=== PATIENT | female | born 1990 | race Hispanic/Latino ===

== ENCOUNTER 2021-03-05 10:59 | Emergency (ER) | payer OTHER, SELFPAY ==
[2021-03-05 11:30] VITALS: BP 130/81; PULSE 81; RESP 16; TEMP 36.6; O2SAT 97; BMI 43.2
--- NOTE | 2021-03-05 13:13 | ED_ITS ---
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 When she was turning the patient over in bed she felt the pain in her upper back. It got progressively more tight and more painful over the course of the next hour. She then went home after her shift and took some ibuprofen which slightly helped her symptoms. However, after she woke up she was still in significant discomfort. She denies any significant difficulty breathing, fever, rash, chest pain headache or any other acute concerns or complaints at this time. She denies any previous injuries similar to this. Related Data Allergies Allergy/AdvReac Type Severity Reaction Status Date / Time celecoxib [From Celebrex] Allergy Hives Verified 03/05/21 11:30 cetirizine [From Zyrtec] Allergy Hives Verified 03/05/21 11:30 Review of Systems <Edgar Bermudez PA-C - Last Filed: 03/12/21 12:08> Review of Systems Narrative: As per HPI Patient History <Edgar Bermudez PA-C - Last Filed: 03/12/21 12:08> Social History Smoking Status: Former smoker Smoking Status: Former smoker alcohol intake frequency: 0-2 drinks per day Substance Use Type: marijuana Exam <Edgar Bermudez PA-C - Last Filed: 03/12/21 12:08> Narrative Exam Narrative: Exam Narrative: Const General: cooperative, healthy appearing, comfortable, no acute distress, well developed and well groomed Nutritional Appearance: Elevated BMI Orientation: alert and oriented x3 HENMT Head: normal to inspection and atraumatic Ears: hearing grossly normal bilaterally Nose: external nose normal and nares normal Face and sinus: normal facial exam Neck Neck: normal visual inspection and supple Resp Effort & Inspection: normal respiratory effort, able to speak in complete sentences, no audible wheezes, not labored, no nasal flaring and no respiratory distress, clear to auscultation bilaterally Musculoskeletal No midline spinal tenderness noted. Mild bilateral paraspinal muscle tenderness in the upper thoracic region to light palpation. No overlying skin changes. Neuro General: alert, oriented x3, gait normal, tone normal and moves all extremities Cognition: normal cognition Speech: speech normal Gait: normal gait Psych Appearance: grossly normal and well kempt Mental Status: mental status grossly normal Speech and Movement: speech and movement normal Mood: congruent mood Affect: normal affect Initial Vital Signs Initial Vital Signs: Vital Signs Temperature 97.9 F 03/05/21 11:30 Pulse Rate 81 03/05/21 11:30 Respiratory Rate 16 03/05/21 11:30 Blood Pressure 130/81 03/05/21 11:30 Pulse Oximetry 97 03/05/21 11:30 <DO Isaias Schneider Last Filed: 03/21/21 07:24> Initial Vital Signs Initial Vital Signs: Vital Signs Temperature 97.9 F 03/05/21 11:30 Pulse Rate 81 03/05/21 11:30 Respiratory Rate 16 03/05/21 11:30 Blood Pressure 130/81 03/05/21 11:30 Pulse Oximetry 97 03/05/21 11:30 Course <Edgar Bermudez PA-C - Last Filed: 03/12/21 12:08> Orders Ordered: Discontinued Medications Acetaminophen (Acetaminophen 325 Mg Tablet) 650 mg PO Q4HR PRN PRN Reason: Fever/Mild Pain (1-3) Last Admin: 03/05/21 13:31 Dose: 650 mg Documented by: BTONER Vital Signs Vital signs: Vital Signs - 8 hr 03/05/21 11:30 Temperature 97.9 F Pulse Rate 81 Respiratory Rate 16 Blood Pressure 130/81 Pulse Oximetry 97 <DO Isaias Schneider Last Filed: 03/21/21 07:24> Orders Ordered: Discontinued Medications Acetaminophen (Acetaminophen 325 Mg Tablet) 650 mg PO Q4HR PRN PRN Reason: Fever/Mild Pain (1-3) Last Admin: 03/05/21 13:31 Dose: 650 mg Documented by: BTONER Vital Signs Vital signs: Vital Signs - 8 hr 03/05/21 11:30 Temperature 97.9 F Pulse Rate 81 Respiratory Rate 16 Blood Pressure 130/81 Pulse Oximetry 97 MDM - Back Pain/Injury <Edgar Bermudez PA-C - Last Filed: 03/12/21 12:08> MDM Narrative Medical decision making narrative: She has no midline spinal tenderness and has normal lung sounds bilaterally. I do not suspect any significant injury that would require advanced imaging at this time. Discharge Plan Departure Patient Disposition: Home Clinical Impression: Mid back pain Instructions: DI for Back Spasm Activity Restrictions/Additional Instructions: It was very nice to me meet you this afternoon. Please apply warm compresses to the affected area, to light exercise, stretching as discussed to help with symptoms. Also massage therapy may be beneficial. I expect symptoms to improve over the course of the next few days. Recommend activity as tolerated. Follow- up with your primary care provider issue or symptoms fail to improve as expected. Patient verbalizes understanding and agrees to plan and has no further concerns at this time. Thank you A [id number] system was used with the dictation of this note. Please disregard any spelling or grammatical errors. <Lamar Lopez, DO - Last Filed: 03/21/21 07:24> Cosign ED Attending Cosignature Attestation: I was immediately available in the department for consultation. Documentation has been reviewed.
[2021-03-05] MEDS: ACETAMINOPHEN 325 MG TABLET 650 MG PO (13:31)
--- NOTE | 2021-03-05 14:20 | ED_ITS ---
HPI - Back Pain/Injury General Chief Complaint: Back Pain/Injury Stated Complaint: Injured back at work Time Seen by Provider: 03/05/21 13:00 Source: patient Limitations: no limitations Related Data Allergies Allergy/AdvReac Type Severity Reaction Status Date / Time celecoxib [From Celebrex] Allergy Hives Verified 03/05/21 11:30 cetirizine [From Zyrtec] Allergy Hives Verified 03/05/21 11:30 Patient History Social History Smoking Status: Former smoker Smoking Status: Former smoker alcohol intake frequency: 0-2 drinks per day Substance Use Type: marijuana Exam Initial Vital Signs Initial Vital Signs: Vital Signs Temperature 97.9 F 03/05/21 11:30 Pulse Rate 81 03/05/21 11:30 Respiratory Rate 16 03/05/21 11:30 Blood Pressure 130/81 03/05/21 11:30 Pulse Oximetry 97 03/05/21 11:30 Course Orders Ordered: Discontinued Medications Acetaminophen (Acetaminophen 325 Mg Tablet) 650 mg PO Q4HR PRN PRN Reason: Fever/Mild Pain (1-3) Last Admin: 03/05/21 13:31 Dose: 650 mg Documented by: BTONER Vital Signs Vital signs: Vital Signs - 8 hr 03/05/21 11:30 Temperature 97.9 F Pulse Rate 81 Respiratory Rate 16 Blood Pressure 130/81 Pulse Oximetry 97 Discharge Plan Departure Patient Disposition: Home Clinical Impression: Mid back pain Discharge Date/Time: 03/05/21 13:40 Instructions: DI for Back Spasm Activity Restrictions/Additional Instructions: It was very nice to me meet you this afternoon. Please apply warm compresses to the affected area, to light exercise, stretching as discussed to help with symptoms. Also massage therapy may be beneficial. I expect symptoms to improve over the course of the next few days. Recommend activity as tolerated. Follow- up with your primary care provider issue or symptoms fail to improve as expected. Patient verbalizes understanding and agrees to plan and has no further concerns at this time. Thank you A [id number] system was used with the dictation of this note. Please disregard any spelling or grammatical errors.
--- NOTE | 2021-03-05 14:21 | PC.NURSE ---
pt was turning a pt while at work.
== END 2021-03-05 13:40 | disposition home or self-care (01) ==
PROVIDERS: Emergency Provider Physician Assistant
DX: M54.6 Pain in thoracic spine (principal); X50.9XXA Other and unspecified overexertion or strenuous movements or postures, initial encounter; Y93.F2 Activity, caregiving, lifting; Y99.0 Civilian activity done for income or pay
CPT/HCPCS: 99282; 99283

== ENCOUNTER 2021-06-03 07:55 | Emergency (ER) | payer OTHER, MEDICAID, SELFPAY ==
[2021-06-03 08:15] VITALS: BP 175/107; PULSE 98; RESP 16; TEMP 36.3; O2SAT 99; BMI 39.4
--- NOTE | 2021-06-03 08:21 | PC.NURSE ---
+Ccovid expousre by daughter. asymptomatic at this time. daughter is positive
--- NOTE | 2021-06-03 08:23 | ED.URI ---
HPI - URI/Sore Throat General Chief Complaint: Upper Respiratory Symptoms Stated Complaint: POSS COVID- EXPOSURE Time Seen by Provider: 06/03/21 08:04 History of Present Illness HPI Narrative: 30-year-old female nonsmoker with noncontributory medical history presents with her daughter who just tested positive for COVID. She has been having some runny nose and sniffles and assumed it was just her allergies. She was tested this morning and was negative at her place of work but encouraged to present here none the less. She is largely asymptomatic and certainly has no trouble breathing or cough. She has had no nausea or vomiting. Related Data Allergies Allergy/AdvReac Type Severity Reaction Status Date / Time celecoxib [From Celebrex] Allergy Hives Verified 03/05/21 11:30 cetirizine [From Zyrtec] Allergy Hives Verified 03/05/21 11:30 Review of Systems Review of Systems Narrative: GENERAL: Denies chills, fatigue, malaise, fever, sweats. HEENT: See HPI RESPIRATORY: Denies dyspnea, cough, wheezing, hemoptysis, sputum. CARDIOVASCULAR: Denies chest pain, palpitations, orthopnea, edema, GASTROINTESTINAL: Denies nausea, vomiting, abdominal pain, diarrhea, constipation, melena. : Denies dysuria, frequency, incontinence, hematuria, urinary retention. MUSCULOSKELETAL: denies weakness, joint pain, or bony pain SKIN: Denies rash, skin lesions, or other NEUROLOGIC: Denies weakness, headache, numbness, change in speech, confusion, seizures, incoordination. PSYCHIATRIC: No concerning psychosocial issues. 12 point review of systems is negative except for those stated above Patient History Social History Smoking Status: Former smoker Smoking Status: Former smoker alcohol intake frequency: 0-2 drinks per day Substance Use Type: marijuana Exam Narrative Exam Narrative: GEN: AOx3 and in mild distress EYES: Pupils are equal, round, and reactive to light and accommodation. Extraoccular muscles are intact bilaterally. There is no subconjunctival hemorrhage or exudate. CHEST: Lungs are clear to auscultation bilaterally and free of wheezes, rales, or rhonchi. Heart rate is regular rhythm, there are no murmurs, clicks, rubs, or gallops. There is no chest wall tenderness. ABD: Abdomen is soft and nontender. There is no guarding or rebound. Bowel sounds are normal in all 4 quadrants. There is no mass or organomegaly. EXT: Full painless ROM of all extremities with no loss of sensation or strength. SKIN: Warm, pink, and dry. No erythema or rash Initial Vital Signs Initial Vital Signs: Vital Signs Temperature 97.4 F L 06/03/21 08:15 Pulse Rate 98 H 06/03/21 08:15 Respiratory Rate 16 06/03/21 08:15 Blood Pressure 175/107 H 06/03/21 08:15 Pulse Oximetry 99 06/03/21 08:15 Course Vital Signs Vital signs: Vital Signs - 8 hr 06/03/21 08:15 Temperature 97.4 F L Pulse Rate 98 H Respiratory Rate 16 Blood Pressure 175/107 H Pulse Oximetry 99 Discharge Plan Departure Patient Disposition: Home Clinical Impression: COVID-19 Instructions: DI for COVID-19 (Suspected or Confirmed ) Activity Restrictions/Additional Instructions: *You have been diagnosed with [ COVID-19] *What to do: * per recommendations from the CDC and the [facility] Department of Health * stay home except to get medical care. Restrict activities outside your home, except for getting medical care. Do not go to work, school, or public areas. Avoid using public transportation, ride sharing, or taxis. * separate yourself from other people in your home. * call ahead before visiting your doctor * Wear a facemask * Cover your coughs and sneezes * Clean your hands often * Avoid sharing household items * Clean all high-touch services every day * Monitor your symptoms and seek prompt medical attention if your illness is worsening, particularly with difficulty in breathing. You may discontinue your isolation when: 1. You have been fever-free for at least 24 hours without the use of fever reducing medication, AND 2. Your symptoms are getting better 3. At least 10 days have passed since symptoms first appeared Individuals with laboratory confirmed COVID-19 who have not had any symptoms may discontinue home isolation when at least 10 days have passed since the date of their first COVID-19 diagnostic test and have had no subsequent illness
== END 2021-06-03 08:25 | disposition home or self-care (01) ==
PROVIDERS: Emergency Provider Emergency Medicine
DX: U07.1 COVID-19 (principal)
CPT/HCPCS: 99281

== ENCOUNTER 2022-09-02 22:48 | Emergency (ER) | payer OTHER, MEDICAID, SELFPAY ==
[2022-09-02 23:00] VITALS: BP 140/65; PULSE 80; RESP 18; TEMP 36.6; O2SAT 98
--- NOTE | 2022-09-02 23:09 | DI.RAD.S_ITS ---
PROCEDURE: XR FOOT LT MIN 3V INDICATIONS: stubbed toes tonight TECHNIQUE: 3 views of the foot were acquired. COMPARISON: None. FINDINGS: Bones: No fractures or dislocations. No suspicious bony lesions. Soft tissues: No tibiotalar joint effusion. Achilles tendon appears normal. IMPRESSION: 1. No fracture or dislocation. Dictated by: Varun Kitchen M.D. on 09/03/2022 at 0:38 Approved by: Varun Kitchen M.D. on 09/03/2022 at 0:40
--- NOTE | 2022-09-03 00:18 | ED.LOWEXIN ---
HPI - Extremity Injury (Lower) General Chief Complaint: Extremity Injury, Lower Stated Complaint: stubbed toe at work Time Seen by Provider: 09/03/22 00:18 Source: patient Mode of arrival: Wheelchair History of Present Illness HPI Narrative: Patient is a 31-year-old female without significant past medical history presenting today with left 2nd and 3rd toe pain after stubbing her toe at work. Said she ran into the laundry cart. It hurts to walk. She said she had pain shooting up her whole leg. She currently has ice on it and took medication prior to arrival. No other injury. Related Data Allergies Allergy/AdvReac Type Severity Reaction Status Date / Time celecoxib [From Celebrex] Allergy Hives Verified 03/05/21 11:30 cetirizine [From Zyrtec] Allergy Hives Verified 03/05/21 11:30 Review of Systems Review of Systems ROS Unobtainable: All systems reviewed & are unremarkable except as noted in HPI and below Patient History Social History Smoking Status: Former smoker Smoking Status: Former smoker alcohol intake frequency: 0-2 drinks per day Substance Use Type: marijuana Exam Initial Vital Signs Initial Vital Signs: Vital Signs Temperature 97.9 F 09/02/22 23:00 Pulse Rate 80 09/02/22 23:00 Respiratory Rate 18 09/02/22 23:00 Blood Pressure 140/65 09/02/22 23:00 Pulse Oximetry 98 09/02/22 23:00 Oxygen Delivery Method 09/02/22 23:00 GENERAL: Well-appearing, well-nourished and in no acute distress. CARDIOVASCULAR: peripheral pulses in tact, cap refill <2 sec RESPIRATORY: No respiratory distress, speaks in full sentences without difficulty EXTREMITIES: Normal range of motion, no clubbing or edema. Neurovascularly intact Left foot distal pedal pulse intact no obvious contusion erythema or toe deformity NEUROLOGICAL: Cranial nerves II through XII grossly intact. Normal gait and speech. SKIN: Abrasion noted on 4th toe no significant bleeding or laceration Course Orders Ordered: ED Orders 09/02/22 23:09 XR foot LT min 3V Stat Vital Signs Vital signs: Vital Signs - 8 hr 09/02/22 23:00 09/03/22 00:35 Temperature 97.9 F 97.7 F Pulse Rate 80 84 Respiratory Rate 18 18 Blood Pressure 140/65 132/80 Pulse Oximetry 98 98 Oxygen Delivery Method Room Air Room Air MDM - Extremity Injury (Lower) Imaging Data Extremity x-ray #1: My Impression: no fracture Radiologist's Impression: XRay Report Signed Patient: Benita Martins MR#: [id number] : 1990 Acct:[id number] Age/Sex: 31 / F Date of Service: 09/02/22 Loc: ED Accession Number: [id number] ?? Procedure: XR foot LT min 3V Ordering Provider: Callie Fitzgerald D.O. PROCEDURE:? XR FOOT LT MIN 3V ? INDICATIONS:? stubbed toes tonight ? TECHNIQUE:? 3 views of the foot were acquired.? ? COMPARISON:? None. ? FINDINGS:? ? Bones:? No fractures or dislocations.? No suspicious bony lesions.? ? Soft tissues:? No tibiotalar joint effusion.? Achilles tendon appears normal.? ? ? IMPRESSION:? ? 1.? No fracture or dislocation. ? ? Dictated by: Varun Kitchen M.D. on 09/03/2022 at 0:38 ? ? Approved by: Varun Kitchen M.D. on 09/03/2022 at 0:40 ? [facility] Narrative Medical decision making narrative: Patient healthy 31-year-old female who presents with toe pain after stubbing the toe. X-rays reviewed by myself no acute fracture facial radiology report also shows no fracture. She has ice on it. She is offered crutches which she declines. She is offered medication which she also declines. At this time supportive care only. No further workup or treatment indicated Discharge Plan Departure Patient Disposition: Home Clinical Impression: Sprain of toe, third, left Instructions: DI for Toe Sprain Activity Restrictions/Additional Instructions: *You have been diagnosed with toe sprain *What to do: At this time ambulate as tolerated try icing *Continue to take medications as directed Tylenol or Motrin as directed if needed for pain *Follow up with your primary care provider in 2-3 days or call [phone] *Return to ER if you should have increasing pain redness or any new, worsening or concerning symptoms Stand Alone Forms: Patient Portal/API, Work Release Note
[2022-09-03 00:35] VITALS: BP 132/80; PULSE 84; RESP 18; TEMP 36.5; O2SAT 98
== END 2022-09-03 00:36 | disposition home or self-care (01) ==
PROVIDERS: Emergency Provider Emergency Medicine
DX: S93.505A Unspecified sprain of left lesser toe(s), initial encounter (principal); W22.8XXA Striking against or struck by other objects, initial encounter; Y99.0 Civilian activity done for income or pay
CPT/HCPCS: 73630; 99281; 99283

== ENCOUNTER → 2024-09-09 15:26 | Outpatient (CLI) | payer OTHER, SELFPAY ==
[2024-09-09 18:28] LABS: Urine N gonorrhoeae NOT DETECTED
[2024-09-09 18:29] LABS: Urine Chlamydia NOT DETECTED
== END ==
PROVIDERS: Visit Provider Nurse Practitioner Family
DX: R30.0 Dysuria (principal); Z11.3 Encounter for screening for infections with a predominantly sexual mode of transmission
CPT/HCPCS: 87077; 87086; 87491; 87591